=== PATIENT | male | born 1970 | race Caucasian/White ===

== ENCOUNTER 2021-08-06 07:02 | Day surgery (SDC) | payer OTHER ==
[2021-08-03 10:10] VITALS: BMI 24.4
[~2021-08-06 07:02] MED LIST: ACETAMINOPHEN TAB 500 MG TAB PO PRN; DEXAMETHASONE SOD PHOSPHATE 4 MG/ML 1 ML VIAL IV ONE; HEPARIN SODIUM,PORCINE/PF 5,000 UNIT/0.5 ML SYRINGE SQ PRN; LACTATED RINGERS 1,000 ML IV SCH; LIDOCAINE 1% (10MG/ML) FOR IV START INTRADERMA PRN; METOCLOPRAMIDE 5 MG/ML 2 ML VIAL IVP PRN; ONDANSETRON 4 MG/2 ML VIAL IVP ONE
[2021-08-06] MEDS ORDERED: MIDAZOLAM 2 MG/2 ML VIAL IVP ONE (08:18)
--- NOTE | 2021-08-06 08:51 | P.GSHP ---
History of Present Illness H&P Date: 08/06/21 Chief Complaint: Right inguinal hernia Is a 51-year-old male who developed a large right inguinal hernia. The hernia and the scrotum. Patient presents today for open repair of right inguinal hernia. Patient's also aware the risk of orchiectomy. Past Medical History Past Medical History: GERD/Reflux Additional Past Medical History / Comment(s): current rt inguinal hernia,kidney stones History of Any Multi-Drug Resistant Organisms: None Reported Past Surgical History: Hernia Repair Additional Past Surgical History / Comment(s): umbilical hernia, wisdom teeth Past Anesthesia/Blood Transfusion Reactions: Previous Problems w/ Anesthesia Additional Past Anesthesia/Blood Transfusion Reaction / Comment(s): combative with umbilical hernia Smoking Status: Current every day smoker - Past Family History Mother Family Medical History: Cancer Additional Family Medical History / Comment(s): lung and bone CA Father Additional Family Medical History / Comment(s): ulcrative colitis Medications and Allergies Home Medications Medication Instructions Recorded Confirmed Type Ibuprofen 600 - 800 mg PO BID PRN 08/03/21 08/06/21 History Allergies Allergy/AdvReac Type Severity Reaction Status Date / Time Penicillins Allergy Rash/Hives Verified 08/06/21 07:22 Surgical - Exam Vital Signs Temp Pulse Resp BP Pulse Ox 97.6 F 80 15 131/89 95 08/06/21 07:43 08/06/21 07:43 08/06/21 07:43 08/06/21 07:43 08/06/21 07:43 - General well developed, well nourished, no distress - Eyes PERRL - ENT normal pinna - Neck no masses - Respiratory normal expansion - Cardiovascular Rhythm: regular - Abdomen Abdomen: soft, non tender Hernia: inguinal (Large right inguinal hernia entering the scrotum.) Assessment and Plan Assessment: Right inguinal hernia. We'll perform open repair
[2021-08-06] MEDS ORDERED: LIDOCAINE 1% INJ 10MG/ML (20 ML MDV) ONE (09:00)
[2021-08-06] MEDS ORDERED: fentaNYL (PF) 50 MCG/ML 2 ML AMP ONE (09:00)
[2021-08-06] MEDS ORDERED: MIDAZOLAM 2 MG/2 ML VIAL ONE (09:00)
[2021-08-06] MEDS ORDERED: ROCURONIUM 10 MG/ML (5 ML VIAL) IV ONE (09:00)
[2021-08-06] MEDS ORDERED: KETOROLAC 15 MG/ML 1 ML VIAL ONE (09:00)
[2021-08-06] MEDS ORDERED: PHENYLEPHRINE-0.9% NACL SYG 1,000 MCG/10 ML SYRINGE ONE (09:00)
[2021-08-06] MEDS ORDERED: HYDROmorphone (PF) 1 MG/ML ONE (09:00)
[2021-08-06] MEDS ORDERED: NEOSTIGMINE 1 MG/ML 10 ML VIAL ONE (09:00)
[2021-08-06] MEDS ORDERED: PROPOFOL 10 MG/ML 20 ML VIAL IV ONE (09:00)
[2021-08-06] MEDS ORDERED: KETAMINE 10 MG/ML 20 ML VIAL ONE (09:00)
[2021-08-06] MEDS ORDERED: SUCCINYLCHOLINE CHLORIDE 100 MG/5 ML SYR IV ONE (09:00)
[2021-08-06] MEDS ORDERED: GLYCOPYRROLATE 0.2 MG/ML 2 ML VIAL ONE (09:00)
[2021-08-06] MEDS ORDERED: LIDOCAINE 0.5%-EPI 1:200,000 50 ML VIAL SUBMUCOSAL ONE ×2 (09:22→10:03)
[2021-08-06] MEDS ORDERED: LACTATED RINGERS 1,000 ML IV ONE (10:14)
--- NOTE | 2021-08-06 10:17 | P.OP ---
Date of Procedure: 08/06/21 Preoperative Diagnosis: Scrotal right inguinal hernia Postoperative Diagnosis: Large right inguinal hernia Procedure(s) Performed: Open repair of right inguinal hernia Right orchiectomy Excision of cord lipoma Anesthesia: LAURA Surgeon: Yang Bonds Estimated Blood Loss (ml): 25 Pathology: other (Right testicle, hernia sac, cord lipoma) Condition: stable Disposition: PACU Description of Procedure: MDESCRIPTION OF PROCEDURE: The patient was placed in the supine position after receiving adequate anesthesia. Patients right groin was prepped and draped in the usual sterile fashion. A standard hernia incision was made and the subcutaneous tissues were divided with electrocautery. The fascia of the external oblique was exposed. A jose the fascia was made with #15 blade. The fascia was then opened with pair of Metzenbaum scissors. A Weitlaner retractor was placed in the wound and the cord structures were grasped and dissected free from the inguinal canal. A rubber [place] drain was placed around the cord structures. The hernia was quite large. The hernia and testicle was dissected free and brought out of the scrotum. The hernia defect was quite large. At this point the hernia sac was dissected free of the cord structures the hernia defect was large. Set up for an orchiectomy in her prevent recurrent hernia. A cord lipoma was dissected off the cord. The spermatic cord was then ligated between Marta clamps cut and then ligated with 0 silk ties. Specimens of pathology. The hernia sac underwent a high ligation with 0 Vicryl suture. A piece of Prolene mesh was placed into the pre-peritoneal space and this was secured with 2-0 Prolene suture. The fascia external oblique was then closed with 0 Vicryl suture. Don's fascia closed with 2-0 Vicryl suture. Skin was closed with 3-0 Vicryl sutures Dermabond was applied. Patient top she will sent to recovery in stable condition. T
[2021-08-06 10:24] VITALS: TEMP 98.4
[2021-08-06] MEDS: HYDROmorphone 0.5 MG/0.5 ML SYRINGE IVP PRN ×3 (11:06→11:33)
[2021-08-06 11:22] VITALS: RESP 16
[2021-08-06 12:23] VITALS: BP 119/80; PULSE 64
== END 2021-08-06 13:32 | disposition home or self-care (01) ==
LOC: OR 07:02
PROVIDERS: ATTEND Surgery
DX: K40.90 Unilateral inguinal hernia, without obstruction or gangrene, not specified as recurrent (principal); K21.9 Gastro-esophageal reflux disease without esophagitis; F17.200 Nicotine dependence, unspecified, uncomplicated; Z87.442 Personal history of urinary calculi; Z88.0 Allergy status to penicillin
CPT/HCPCS: 49505; C1781; J2250; J1100; J2710; J2765; J0690; J2405; J2001; J3010; J1170 ×2; J1885; J2370; J0330; J2704; J1644; 88304; 88305

== ENCOUNTER 2021-08-09 12:12 | Day surgery (SDC) | payer OTHER ==
[2021-08-03 11:23] VITALS: BMI 24.4
--- NOTE | 2021-08-09 09:04 | P.HPIHPCON ---
History of Present Illness H&P Date: 08/09/21 Chief Complaint: Left-sided ureteral stone This is a 51-year-old male with history of an 8 mm left-sided ureteral stone. He is symptomatic from his stone, of note his stone is radiolucent. Discussed the option of doing a left-sided ureteroscopy. Discussed with him the risk of surgery which includes but not limited to bleeding, infection, injury to the ureter. Discussed also risk from anesthesia. He understood all the risk and agreed to proceed with left-sided ureteroscopy, with holmium laser lithotripsy, stone basketing and stent insertion Consent for Procedure: I have explained the operation/procedure to the patient, including the risks, benefits, side effects, alternative therapies (including not receiving the proposed treatment or service), the likelihood of the patient achieving his/her goals, and potential recuperation problems for the procedure/sedation/analgesia, as well as any blood products, if indicated. I also explained to the patient the risks, benefits and side effects of the alternatives, as well as the risks relat ed to not receiving the proposed procedure, care, treatment, or services. Past Medical History Past Medical History: GERD/Reflux Additional Past Medical History / Comment(s): current rt inguinal hernia,kidney stones History of Any Multi-Drug Resistant Organisms: None Reported Past Surgical History: Hernia Repair Additional Past Surgical History / Comment(s): umbilical hernia repair, wisdom teeth Past Anesthesia/Blood Transfusion Reactions: Previous Problems w/ Anesthesia Additional Past Anesthesia/Blood Transfusion Reaction / Comment(s): combative with with umbilical hernia r Smoking Status: Current every day smoker - Past Family History Mother Family Medical History: Cancer Additional Family Medical History / Comment(s): lung and bone CA Father Family Medical History: Cancer Additional Family Medical History / Comment(s): ulceraltive colitis Medications and Allergies Home Medications Medication Instructions Recorded Confirmed Type Ibuprofen 600 - 800 mg PO BID PRN 08/03/21 08/06/21 History Acetaminophen Tab [Tylenol] 650 mg PO Q6H #30 tab 08/06/21 Rx Docusate [Colace] 100 mg PO BID #20 cap 08/06/21 Rx Ibuprofen [Motrin] 600 mg PO Q6HR PRN #40 tab 08/06/21 Rx oxyCODONE HCL [OxyIR] 5 mg PO Q6H PRN 3 Days #10 tab 08/06/21 Rx Allergies Allergy/AdvReac Type Severity Reaction Status Date / Time Penicillins Allergy Rash/Hives Verified 08/06/21 07:22 Surgical - Exam - General no distress, moderate pain - Eyes PERRL, normal ocular movement - Respiratory normal expansion, normal respiratory effort - Abdomen Abdomen: soft, non tender Assessment and Plan Assessment: 51-year-old male with history of left-sided ureteral stone -OR for left-sided ureteroscopy, with holmium laser lithotripsy, stone basketing and stent insertion
[~2021-08-09 12:12] MED LIST changes: +ACETAMINOPHEN TAB 500 MG TAB ONE; -ACETAMINOPHEN TAB 500 MG TAB PO PRN; -DEXAMETHASONE SOD PHOSPHATE 4 MG/ML 1 ML VIAL IV ONE; +HEPARIN SODIUM,PORCINE/PF 5,000 UNIT/0.5 ML SYRINGE SQ ONE; -HEPARIN SODIUM,PORCINE/PF 5,000 UNIT/0.5 ML SYRINGE SQ PRN; -LACTATED RINGERS 1,000 ML IV SCH; -LIDOCAINE 1% (10MG/ML) FOR IV START INTRADERMA PRN; -METOCLOPRAMIDE 5 MG/ML 2 ML VIAL IVP PRN; +METOCLOPRAMIDE 5 MG/ML 2 ML VIAL ONE; -ONDANSETRON 4 MG/2 ML VIAL IVP ONE; +ONDANSETRON 4 MG/2 ML VIAL ONE
[2021-08-09] MEDS ORDERED: DEXAMETHASONE SOD PHOSPHATE 4 MG/ML 1 ML VIAL IV ONE (13:09)
[2021-08-09] MEDS ORDERED: ONDANSETRON 4 MG/2 ML VIAL IVP ONE (13:09)
[2021-08-09] MEDS ORDERED: HYDROmorphone 0.5 MG/0.5 ML SYRINGE IVP PRN (13:09)
[2021-08-09] MEDS ORDERED: LACTATED RINGERS 1,000 ML IV SCH (13:09)
[2021-08-09 13:19] VITALS: TEMP 97.8
[2021-08-09] MEDS ORDERED: LACTATED RINGERS 1,000 ML IV ONE ×2 (13:28→15:34)
[2021-08-09] MEDS ORDERED: METOCLOPRAMIDE 5 MG/ML 2 ML VIAL ONE (13:32)
[2021-08-09] MEDS ORDERED: FAMOTIDINE 20 MG/2 ML VIAL IVP ONE (13:38)
[2021-08-09] MEDS ORDERED: LIDOCAINE 1% INJ 10MG/ML (20 ML MDV) ONE (14:07)
[2021-08-09] MEDS ORDERED: SUCCINYLCHOLINE CHLORIDE 100 MG/5 ML SYR IV ONE (14:07)
[2021-08-09] MEDS ORDERED: GLYCOPYRROLATE 0.2 MG/ML 2 ML VIAL ONE (14:07)
[2021-08-09] MEDS ORDERED: PROPOFOL 10 MG/ML 20 ML VIAL IV ONE (14:07)
[2021-08-09] MEDS ORDERED: NEOSTIGMINE 1 MG/ML 10 ML VIAL ONE (14:07)
[2021-08-09] MEDS ORDERED: fentaNYL (PF) 50 MCG/ML 2 ML AMP ONE (14:07)
[2021-08-09] MEDS ORDERED: ROCURONIUM 10 MG/ML (5 ML VIAL) IV ONE (14:07)
[2021-08-09] MEDS ORDERED: MIDAZOLAM 2 MG/2 ML VIAL ONE (14:07)
[2021-08-09] MEDS ORDERED: IOPAMIDOL-370 50ML BTL IRRIGATION ONE (15:12)
--- NOTE | 2021-08-09 15:28 | P.OP ---
Date of Procedure: 08/09/21 Preoperative Diagnosis: Left ureteral stone Postoperative Diagnosis: Same Procedure(s) Performed: Cystoscopy, left retrograde pyelogram ureteroscopy, holmium laser lithotripsy, stone basketing and stent insertion Implants: 6-German by 26 cm stent in the left ureter or left on a string Anesthesia: LAURA Surgeon: Abhi Neves Estimated Blood Loss (ml): 5 Pathology: other (left ureteral stone) Condition: stable Disposition: PACU Indications for Procedure: This is a 51-year-old male with history of an 8 mm left-sided ureteral stone. He is symptomatic from his stone, of note his stone is radiolucent. Discussed the option of doing a left-sided ureteroscopy. Discussed with him the risk of surgery which includes but not limited to bleeding, infection, injury to the ureter. Discussed also risk from anesthesia. He understood all the risk and agreed to proceed with left-sided ureteroscopy, with holmium laser lithotripsy, stone basketing and stent insertion Operative Findings: Large left midureteral stone Description of Procedure: Patient was brought to the operating room, general anesthesia was induced. He was prepped and draped in sterile fashion and placed in dorsal lithotomy position. Cystoscopy fitted with a 21-German sheath was inserted per urethra, cystoscopy was performed which showed no abnormality within the bladder. Attention was then carried to the left ureteral orifice which was intubated with a sensor wire. Next a semirigid ureteroscope was advanced up the urethra and up the left ureteral orifice, a stone was encountered in the mid ureter. Using the holmium laser the stone was fragmented into small fragments, sizable fragments were removed using the stone basket. Of note the stone was impacted at the site. After stone was fragmented I was able to advance the ureteroscope all the way up to the UPJ which showed no additional stones. Retrograde pyelogram was performed through the ureteroscope which showed no filling defect within the kidney. Pullback ureteroscopy was performed which showed no sizable fragments, or injury to the ureter. There was some ureteral edema at the site of stone impaction. As the ureteroscope was withdrawn a sensor was advanced through. Next a ureteral stent was passed over the wire, the proximal curl was was on fluoroscopy and distal curl was visualized using the cystoscope. The stent was left on a string and taped to the patient penis. The bladder was emptied at the end of the case. Patient tolerated the procedure well was taken to PACU in stable condition
--- NOTE | 2021-08-09 16:03 | FL ---
EXAMINATION TYPE: FL guidance operating room DATE OF EXAM: 08/09/2021 FLUOROSCOPY Fluoroscopy time of 17 seconds was used during urologic intervention for left-sided renal calculus. 6 image/s document/s the procedure.
[2021-08-09 16:36] VITALS: BP 122/83; PULSE 79; RESP 16
== END 2021-08-09 16:50 | disposition home or self-care (01) ==
LOC: OR 12:12
PROVIDERS: ATTEND Urology
DX: N20.1 Calculus of ureter (principal); Z87.442 Personal history of urinary calculi; K21.9 Gastro-esophageal reflux disease without esophagitis; F17.200 Nicotine dependence, unspecified, uncomplicated; I73.00 Raynaud's syndrome without gangrene; Z88.0 Allergy status to penicillin
CPT/HCPCS: 52356; 76000; 88300; C2625; C1769; J2250; J1100; J2710; J2765; J0690; J2405; J2001; J3010; J0330; J2704; Q9967

== ENCOUNTER 2021-08-14 21:30 | Emergency (ER) | payer OTHER ==
[2021-08-14 22:37] VITALS: BP 129/89; PULSE 87; RESP 20; TEMP 97.9
--- NOTE | 2021-08-15 00:36 | XR ---
EXAMINATION TYPE: XR KUB DATE OF EXAM: 08/15/2021 COMPARISON: NONE HISTORY: Check stent placement TECHNIQUE: 3 views FINDINGS: There is left side ureteral stent noted. The ureteral stent lower and appears to be in the posterior urethra. The upper end of the stent is overlying the proximal left ureter. There is no calc ification seen over the kidneys. Bowel gas pattern is normal. Lung bases are clear of consolidation. IMPRESSION: Lower end of the ureteral stent is in the urethra.
--- NOTE | 2021-08-15 00:49 | ED ---
Male Urogenital HPI - General Chief complaint: Urogenital Stated complaint: Post Op Issue Time Seen by Provider: 08/15/21 00:05 Source: patient Mode of arrival: ambulatory Limitations: no limitations - History of Present Illness Initial comments: This patient is 51-year-old man who presents with complaint that he is having incontinence. The patient did have a ureteral stent placed recently. Patient notes that he was using zipper of his pants and it caught on the string for the stent and did partially dislodged. Denies pain. Complaint: other -: minutes(s) Location: penis Radiation: none Consistency: constant Improves with: none Worsens with: none Reports: other - Related Data Home Medications Medication Instructions Recorded Confirmed Ibuprofen 600 - 800 mg PO BID PRN 08/03/21 08/06/21 Previous Rx's Medication Instructions Recorded Acetaminophen Tab [Tylenol] 650 mg PO Q6H #30 tab 08/06/21 Docusate [Colace] 100 mg PO BID #20 cap 08/06/21 Ibuprofen [Motrin] 600 mg PO Q6HR PRN #40 tab 08/06/21 oxyCODONE HCL [OxyIR] 5 mg PO Q6H PRN 3 Days #10 tab 08/06/21 Ketorolac [Toradol] 10 mg PO Q6HR PRN #15 tab 08/09/21 Sulfamethox-Tmp 800-160Mg [Bactrim 1 tab PO Q12HR #10 tab 08/09/21 DS 800-160 mg] Allergies Allergy/AdvReac Type Severity Reaction Status Date / Time Penicillins Allergy Rash/Hives Verified 08/14/21 22:37 Review of Systems ROS Statement: Those systems with pertinent positive or pertinent negative responses have been documented in the HPI. ROS Other: All systems not noted in ROS Statement are negative. Constitutional: Denies: fever, chills Respiratory: Denies: cough, dyspnea Cardiovascular: Denies: chest pain, palpitations Gastrointestinal: Denies: abdominal pain, vomiting, diarrhea Genitourinary: Reports: other (Incontinence). Denies: dysuria, frequency, hematuria, testicular pain, testicular mass Musculoskeletal: Denies: back pain Skin: Denies: rash Neurological: Denies: headache, weakness Past Medical History Past Medical History: GERD/Reflux Additional Past Medical History / Comment(s): current rt inguinal hernia,kidney stones History of Any Multi-Drug Resistant Organisms: None Reported Past Surgical History: Hernia Repair Additional Past Surgical History / Comment(s): umbilical hernia repair, wisdom teeth Past Anesthesia/Blood Transfusion Reactions: Previous Problems w/ Anesthesia Additional Past Anesthesia/Blood Transfusion Reaction / Comment(s): combative with with umbilical hernia r Past Psychological History: PTSD Smoking Status: Current every day smoker Past Alcohol Use History: None Reported Past Drug Use History: None Reported - Past Family History Mother Family Medical History: Cancer Additional Family Medical History / Comment(s): lung and bone CA Father Additional Family Medical History / Comment(s): ulcrative colitis General Exam Limitations: no limitations General appearance: alert, in no apparent distress Head exam: Present: atraumatic, normocephalic Eye exam: Present: normal appearance. Absent: scleral icterus, conjunctival injection Respiratory exam: Present: normal lung sounds bilaterally. Absent: respiratory distress, wheezes, rales, rhonchi, stridor Cardiovascular Exam: Present: regular rate, normal rhythm, normal heart sounds. Absent: systolic murmur, diastolic murmur, rubs, gallop GI/Abdominal exam: Present: soft. Absent: distended, tenderness, guarding, rebound, rigid, mass exam: Present: normal inspection, other (Patient does have a string projecting from the urethra) Extremities exam: Present: normal inspection. Absent: pedal edema Back exam: Present: normal inspection. Absent: CVA tenderness (R), CVA tenderness (L) Neurological exam: Present: alert Course Vital Signs 08/14/21 22:34 Temperature 97.9 F Pulse Rate 87 Respiratory 20 Rate Blood Pressure 129/89 O2 Sat by Pulse 97 Oximetry Medical Decision Making - Medical Decision Making After communicating with Dr. Neves, and discussed with patient I did remove the patient's ureteral stent by using gentle traction on the string it did come out without complication. Disposition Clinical Impression: Ureteral stent displacement Disposition: HOME SELF-CARE Condition: Good Instructions (If sedation given, give patient instructions): Kidney Stones (ED) Is patient prescribed a controlled substance at d/c from ED?: No Referrals: None,Stated [Primary Care Provider] - 1-2 days
== END 2021-08-15 00:58 | disposition home or self-care (01) ==
LOC: EC 21:30
DX: T83.122A Displacement of indwelling ureteral stent, initial encounter (principal); K21.9 Gastro-esophageal reflux disease without esophagitis; F17.200 Nicotine dependence, unspecified, uncomplicated; Z79.1 Long term (current) use of non-steroidal anti-inflammatories (NSAID); Z88.0 Allergy status to penicillin; Z79.899 Other long term (current) drug therapy
CPT/HCPCS: 74018; 99283